=== PATIENT | female | born 1995 | race African-American/Black ===

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

== ENCOUNTER 2017-01-08 10:47 | Outpatient (CLI) | payer BC | END 2017-01-08 23:59 | disposition home or self-care (01) | LOC: US 10:47 | DX: E04.2 Nontoxic multinodular goiter (principal); D34 Benign neoplasm of thyroid gland; E03.9 Hypothyroidism, unspecified | CPT/HCPCS: 76536-TC ==

== ENCOUNTER 2017-04-15 08:25 | Outpatient (CLI) | payer BC | END 2017-04-15 23:59 | disposition home or self-care (01) | LOC: MRI 08:25 | PROVIDERS: ATTEND Specialist | DX: M25.862 Other specified joint disorders, left knee (principal); M25.861 Other specified joint disorders, right knee | CPT/HCPCS: 73721-TC ==

== ENCOUNTER 2017-07-04 16:08 | Emergency (ER) | payer BC ==
[~2017-07-04] VITALS: Ht 152.4 cm; Wt 47.6 kg
[2017-07-04 16:39] VITALS: BP 107/79
[2017-07-04 17:00] LABS: APPEARANCE,URINE Clear (CLEAR); BILIRUBIN,URINE Negative (NEGATIVE); BLOOD, URINE Negative Ery/uL (NEGATIVE); COLOR,URINE Light yellow (YELLOW); KETONES,URINE Negative (NEGATIVE); LEUKOCYTE ESTERASE ,URINE Negative (NEGATIVE); NITRITE, URINE Negative (NEGATIVE); PROTEIN,URINE Negative (NEGATIVE); UGLUCOSE Negative (NEGATIVE); UROBILINOGEN,URINE 0.2 EU/dL (0.2)
== END 2017-07-04 19:15 | disposition home or self-care (01) ==
LOC: ER 16:10
DX: N76.0 Acute vaginitis (principal)
CPT/HCPCS: 81000-TC; 84703-TC; 87210-TC; A4606; Z7610

== ENCOUNTER 2018-11-02 14:20 | Outpatient (CLI) | payer BC | END 2018-11-02 23:59 | disposition home or self-care (01) | LOC: MRI 14:20 | DX: S09.93XA Unspecified injury of face, initial encounter (principal); J34.1 Cyst and mucocele of nose and nasal sinus; J32.9 Chronic sinusitis, unspecified; X58.XXXA Exposure to other specified factors, initial encounter; Y93.89 Activity, other specified; Y92.89 Other specified places as the place of occurrence of the external cause; Y99.8 Other external cause status | CPT/HCPCS: 70150-TC; 70160-TC; 70551-TC; 72141-TC ==

== ENCOUNTER 2021-02-02 09:55 | Outpatient (CLI) | payer BC | END 2021-02-02 23:59 | disposition home or self-care (01) | LOC: US 09:55 | PROVIDERS: ATTEND Internal Medicine Endocrinology, Diabetes & Metabolism | DX: E04.2 Nontoxic multinodular goiter (principal); D34 Benign neoplasm of thyroid gland | CPT/HCPCS: 76536-TC ==